=== PATIENT | female | born 1950 | race Caucasian/White ===

== ENCOUNTER 2022-01-02 02:40 | Inpatient (IN) ==
[2022-01-02 04:08] LABS: ABS Basophils 0.1 10^3/ul (0-0.2); ABS Lymphocytes 1.5 10^3/ul (1.0-4.8); ABS Neutrophils 10.6 10^3/ul (1.5-7.7); Eosinophil % 0.3 %; Hematocrit 42 % (35-47); Hemoglobin 14.4 g/dL (12.0-16.0); Lymphocyte % 11.6 %; Mean Corpuscular HGB Conc 34 g/dL (31-36); Mean Corpuscular Hemoglobin 31 pg (27-31); Mean Corpuscular Volume 92 fL (80-97); Platelet Count 228 10^3/uL (150-450); Red Cell Distribution Width 13 % (10-15); White Blood Count 13.2 10^3/uL (3.5-10.8)
[2022-01-02 04:32] LABS: ALT 21 U/L (7-52); AST 25 U/L (13-39); Albumin/Globulin Ratio 1.7 (1-3); Alcohol, S < 13 mg/dL (<13); Alkaline Phosphatase 155 U/L (35-149); Blood Urea Nitrogen 37 mg/dL (6-24); CO2 Carbon Dioxide 26 mmol/L (22-32); Calcium 9.9 mg/dL (8.6-10.3); Chloride 84 mmol/L (101-111); Globulin 2.4 g/dL (2-4); Sodium 123 mmol/L (135-145); Total Protein 6.4 g/dL (6.4-8.9); eGFR CKD-EPI 41.8 (>60)
[2022-01-02 04:33] LABS: Anion Gap 13 mmol/L (2-11); Potassium 5.7 mmol/L (3.5-5.0)
[2022-01-02 05:06] LABS: Glucose 924 mg/dL (70-100)
[2022-01-02] MEDS ORDERED: NS 0.9% 1000 ml BAG 2,000 ML IV ONE (05:07)
[2022-01-02] MEDS ORDERED: Insulin GLARGINE 100 un/ml 10 ml VIAL SUBCUT ONE (05:09)
[2022-01-02 05:26] LABS: Urine Appearance Clear; Urine Color Yellow
[2022-01-02 05:27] LABS: Urine Bilirubin Negative (Negative); Urine Blood Trace (Intact) (Negative); Urine Glucose 3+ (>=1000 mg/dL) (Negative); Urine Ketones Negative (Negative); Urine Protein Negative (Negative); Urine Specific Gravity <=1.005 (1.005-1.030); Urine Urobilinogen 0.2 (Negative) (Negative)
[2022-01-02 05:28] LABS: Urine Nitrite Negative (Negative)
[2022-01-02 06:05] LABS: Urine Bacteria 1+ (Absent); Urine Red Blood Cell Trace(0-2/hpf) (Absent); Urine Squamous Epithelial Cell Present (Absent); Urine White Blood Cell Trace(0-5/hpf) (Absent)
[2022-01-02 07:12] LABS: Glucose Confirmatory 494 mg/dL (70-100)
[2022-01-02 08:14] LABS: Urine Osmo 521 mOsm/kg (150-1150)
[2022-01-02 09:33] LABS: Potassium 4.3 mmol/L (3.5-5.0); eGFR CKD-EPI 52.7 (>60)
[2022-01-02] MEDS ORDERED: Dextrose 50% Syringe 50 ml 25 GM/50 ML SYRINGE IV PUSH PRN ×2 (10:03→10:47)
[2022-01-02] MEDS ORDERED: Lactated Ringers 1000 ml BAG 1,000 ML IV ONE (10:46)
[2022-01-02] MEDS ORDERED: Warfarin per PHARMACY **NOTE FOLLOW UP SCH (11:00)
[2022-01-02] MEDS ORDERED: Lactated Ringers 1000 ml BAG 1,000 ML IV SCH ×2 (11:00)
[2022-01-02 12:12] LABS: INR 1.05 (0.89-1.11)
[2022-01-02 12:21] LABS: Glucose Confirmatory 406 mg/dL (70-100)
[2022-01-02] MEDS: Warfarin DAILY REMINDER **NOTE FOLLOW UP SCH (18:06)
[2022-01-02] MEDS ORDERED: Enoxaparin 40 MG/0.4 ML SYR SUBCUT SCH (19:00)
[2022-01-02] MEDS ORDERED: Insulin GLARGINE 100 un/ml 10 ml VIAL SUBCUT SCH (21:00)
[2022-01-03 06:13] LABS: INR 1.05 (0.89-1.11)
[2022-01-03 06:42] LABS: Calcium 8.8 mg/dL (8.6-10.3); eGFR CKD-EPI 87.5 (>60)
[2022-01-03] MEDS: Warfarin DAILY REMINDER **NOTE FOLLOW UP SCH (17:39)
[2022-01-03] MEDS ORDERED: Insulin GLARGINE 100 un/ml 10 ml VIAL SUBCUT SCH (21:00)
[2022-01-03] MEDS: Enoxaparin 40 MG/0.4 ML SYR SUBCUT SCH (21:44)
[2022-01-04 05:38] LABS: INR 1.11 (0.89-1.11)
[2022-01-04 05:56] LABS: Calcium 8.7 mg/dL (8.6-10.3); eGFR CKD-EPI 82.2 (>60)
[2022-01-04] MEDS: Warfarin DAILY REMINDER **NOTE FOLLOW UP SCH (19:26)
[2022-01-04] MEDS ORDERED: Insulin GLARGINE 100 un/ml 10 ml VIAL SUBCUT SCH (21:00)
[2022-01-04] MEDS: Enoxaparin 40 MG/0.4 ML SYR SUBCUT SCH (21:55)
[2022-01-05 06:27] LABS: INR 1.26 (0.89-1.11)
[2022-01-05 07:13] LABS: Calcium 8.7 mg/dL (8.6-10.3); Potassium 3.7 mmol/L (3.5-5.0); eGFR CKD-EPI 86.1 (>60)
[2022-01-05 15:53] VITALS: BP 130/71
== END 2022-01-05 16:40 | disposition home health service (06) | DRG 638 ==
LOC: ED 02:40 → SUATTDRO 08:26 → EDHOLD 08:26 → MED 15:37
PROVIDERS: ADMIT Internal Medicine; ATTEND Internal Medicine

== ENCOUNTER 2023-04-20 14:25 | Inpatient (IN) ==
[2023-04-20 16:51] LABS: ABS Basophils 0.1 10^3/uL (0.0-0.1); ABS Eosinophils 0.2 10^3/uL (0.0-0.5); ABS Lymphocytes 1.5 10^3/uL (1.0-4.8); ABS Monocytes 0.7 10^3/uL (0.0-0.9); ABS Neutrophils 7.2 10^3/uL (1.5-7.6); Eosinophil % 2.2 %; Hematocrit 36.1 % (35-45); Hemoglobin 12.6 g/dL (11.5-14.3); Lymphocyte % 15.8 %; Mean Corpuscular Hemoglobin 31.8 pg (27-33); Mean Corpuscular Hgb Conc 34.9 g/dL (31-36); Mean Corpuscular Volume 91.1 fL (80-97); Mean Platelet Volume 8.5 fL (7.5-11.2); Platelet Count 208 10^3/uL (150-450); Red Blood Count 3.96 10^6/uL (3.63-4.92); Red Cell Distribution Width 13.7 % (12-17); White Blood Count 9.7 10^3/uL (3.8-11.8)
[2023-04-20 17:00] LABS: INR 1.12 (0.83-1.13)
[2023-04-20 17:11] LABS: Albumin 3.6 g/dL (3.2-5.2); Albumin/Globulin Ratio 1.8 (1-3); C Reactive Protein 3.5 mg/L (<8.01); Calcium 8.8 mg/dL (8.6-10.3); Creatinine, Serum 0.8 mg/dL (0.51-0.95); Potassium 3.4 mmol/L (3.5-5.0); Total Bilirubin 0.9 mg/dL (0.2-1.0); Total Protein 5.6 g/dL (6.4-8.9); eGFR CKD-EPI 78.7 (>60)
[2023-04-20] MEDS ORDERED: Carbidopa/Levodop 25/100 MG TAB PO ONE (17:30)
[2023-04-20] MEDS ORDERED: Dextrose 50% Syringe 50 ml 25 GM/50 ML SYRINGE IV PUSH PRN (18:44)
[2023-04-20] MEDS ORDERED: Potassium Chlor 20 meq TAB.ER PO ONE (18:57)
[2023-04-20 20:31] LABS: Magnesium 1.8 mg/dL (1.9-2.7)
[2023-04-20] MEDS: Carbidopa/Levodop 25/100 MG TAB PO SCH (21:33)
[2023-04-20] MEDS ORDERED: Magnesium Sulfate 2 gm BAG 2 GM/50 ML BAG IVPB ONE (23:54)
[2023-04-21] MEDS: Nystatin TOP POWDER 15 GM BTL TOPICAL SCH ×3 (05:11→19:53)
[2023-04-21 06:13] LABS: ABS Eosinophils 0.4 10^3/uL (0.0-0.5); ABS Lymphocytes 1.8 10^3/uL (1.0-4.8); ABS Monocytes 0.6 10^3/uL (0.0-0.9); ABS Neutrophils 4.2 10^3/uL (1.5-7.6); Eosinophil % 5.7 %; Hematocrit 34.9 % (35-45); Hemoglobin 12.3 g/dL (11.5-14.3); Lymphocyte % 25.8 %; Mean Corpuscular Hemoglobin 32.2 pg (27-33); Mean Corpuscular Hgb Conc 35.4 g/dL (31-36); Mean Corpuscular Volume 91.2 fL (80-97); Mean Platelet Volume 8.7 fL (7.5-11.2); Platelet Count 193 10^3/uL (150-450); Red Blood Count 3.83 10^6/uL (3.63-4.92); Red Cell Distribution Width 14.1 % (12-17); White Blood Count 6.9 10^3/uL (3.8-11.8)
[2023-04-21 06:30] LABS: Calcium 8.5 mg/dL (8.6-10.3); Creatinine, Serum 0.78 mg/dL (0.51-0.95); Potassium 4.1 mmol/L (3.5-5.0); eGFR CKD-EPI 81.2 (>60)
[2023-04-21] MEDS: Carbidopa/Levodop 25/100 MG TAB PO SCH ×3 (08:20→19:49)
[2023-04-21 14:46] LABS: TSH Ultra Thyroid Stim Horm 0.94 mcIU/mL (0.34-5.60)
[2023-04-21 19:59] LABS: Urine Appearance Cloudy; Urine Bilirubin Negative (Negative); Urine Blood Negative (Negative); Urine Color Yellow; Urine Glucose 1+(50 mg/dL) (Negative); Urine Ketones Trace (Negative); Urine Nitrite Negative (Negative); Urine Protein Negative (Negative); Urine Specific Gravity 1.025 (1.002-1.030); Urine Urobilinogen Negative (Negative)
[2023-04-21 20:45] LABS: Urine Bacteria Absent (Absent); Urine Red Blood Cell Absent (Absent); Urine Squamous Epithelial Cell Present (Absent); Urine White Blood Cell 1+(6-10/hpf) (Absent)
[2023-04-22] MEDS: Carbidopa/Levodop 25/100 MG TAB PO SCH ×3 (08:00→20:40)
[2023-04-22] MEDS: Nystatin TOP POWDER 15 GM BTL TOPICAL SCH ×2 (10:11→20:40)
[2023-04-23] MEDS: Nystatin TOP POWDER 15 GM BTL TOPICAL SCH ×2 (10:04→20:57)
[2023-04-23] MEDS: Carbidopa/Levodop 25/100 MG TAB PO SCH ×3 (10:04→20:50)
[2023-04-24] MEDS: Carbidopa/Levodop 25/100 MG TAB PO SCH ×3 (08:44→21:11)
[2023-04-24] MEDS ORDERED: Influenza vaccine *QUAD* *2023-24* 0.5 ML SYRINGE IM ONE (09:00)
[2023-04-24] MEDS: Nystatin TOP POWDER 15 GM BTL TOPICAL SCH ×2 (12:24→21:27)
[2023-04-25] MEDS: Carbidopa/Levodop 25/100 MG TAB PO SCH (08:31)
[2023-04-25] MEDS: Nystatin TOP POWDER 15 GM BTL TOPICAL SCH (08:32)
[2023-04-25 09:44] VITALS: BP 99/66
[2023-04-25 12:41] LABS: Rapid COVID-19 Molecular Undetected (Undetected)
== END 2023-04-25 13:20 | DRG 312 ==
LOC: ED 14:25 → EDHOLD 14:25 → MED 19:46 → SUATTDRO 04-22 09:02
PROVIDERS: ADMIT Hospitalist; ATTEND Internal Medicine

== ENCOUNTER 2023-06-01 11:31 | Observation (INO) ==
[2023-06-01 12:31] LABS: ABS Lymphocytes 1.2 10^3/uL (1.0-4.8); ABS Neutrophils 11.8 10^3/uL (1.5-7.6); ABS Nucleated RBC 0.01 10^3/ul; Eosinophil % 0.1 %; Hematocrit 39.4 % (35-45); Hemoglobin 13.5 g/dL (11.5-14.3); Lymphocyte % 8.4 %; Mean Corpuscular Hemoglobin 31.1 pg (27-33); Mean Corpuscular Hgb Conc 34.2 g/dL (31-36); Mean Corpuscular Volume 91.1 fL (80-97); Mean Platelet Volume 8.5 fL (7.5-11.2); Platelet Count 263 10^3/uL (150-450); Red Blood Count 4.33 10^6/uL (3.63-4.92); Red Cell Distribution Width 14.1 % (12-17)
[2023-06-01 12:47] LABS: ALT 42 U/L (7-52); Albumin 3.5 g/dL (3.2-5.2); Albumin/Globulin Ratio 1.4 (1-3); Alkaline Phosphatase 53 U/L (35-149); Anion Gap 12 mmol/L (2-16); Blood Urea Nitrogen 29 mg/dL (6-24); CO2 Carbon Dioxide 24 mmol/L (22-32); Chloride 103 mmol/L (101-111); Creatinine, Serum 0.77 mg/dL (0.51-0.95); Globulin 2.5 g/dL (2-4); Glucose 193 mg/dL (70-100); Sodium 139 mmol/L (135-145); Total Bilirubin 1.4 mg/dL (0.2-1.0); eGFR CKD-EPI 82.4 (>60)
[2023-06-01 13:14] LABS: Creatine Kinase 2788 U/L (10-223)
[2023-06-01 13:23] LABS: Magnesium 1.7 mg/dL (1.9-2.7); Potassium Redraw 3.8 mmol/L (3.5-5.0)
[2023-06-01] MEDS ORDERED: Lactated Ringers 1000 ml BAG 1,000 ML IV ONE (13:32)
[2023-06-01] MEDS ORDERED: Magnesium Sulfate 2 gm BAG 2 GM/50 ML BAG IVPB ONE (13:32)
[2023-06-01 16:27] LABS: C Reactive Protein 76.7 mg/L (<8.01); Phosphorus 2.8 mg/dL (2.5-5.0)
[2023-06-01 16:52] LABS: TSH Ultra Thyroid Stim Horm 1.26 mcIU/mL (0.34-5.60)
[2023-06-01 17:04] LABS: Folate 8.41 ng/mL (5.90-24.80)
[2023-06-01] MEDS ORDERED: Dextrose 50% Syringe 50 ml 25 GM/50 ML SYRINGE IV PUSH PRN (20:32)
[2023-06-01] MEDS ORDERED: Lactated Ringers 1000 ml BAG 1,000 ML IV SCH (21:00)
[2023-06-01] MEDS: Carbidopa/Levodop 25/100 MG TAB PO SCH (21:21)
[2023-06-02 06:08] LABS: ABS Eosinophils 0.1 10^3/uL (0.0-0.5); ABS Lymphocytes 1.6 10^3/uL (1.0-4.8); ABS Monocytes 0.9 10^3/uL (0.0-0.9); ABS Neutrophils 6.9 10^3/uL (1.5-7.6); ABS Nucleated RBC 0.01 10^3/ul; Eosinophil % 1.4 %; Hematocrit 35.5 % (35-45); Hemoglobin 12.3 g/dL (11.5-14.3); Lymphocyte % 16.5 %; Mean Corpuscular Hemoglobin 31.8 pg (27-33); Mean Corpuscular Hgb Conc 34.6 g/dL (31-36); Mean Corpuscular Volume 91.9 fL (80-97); Mean Platelet Volume 8.8 fL (7.5-11.2); Nucleated Red Blood Cells % 0.1 %/100WBC (0.0-0.8); Platelet Count 227 10^3/uL (150-450); Red Blood Count 3.86 10^6/uL (3.63-4.92); Red Cell Distribution Width 14.1 % (12-17); White Blood Count 9.6 10^3/uL (3.8-11.8)
[2023-06-02 06:31] LABS: Calcium 8.8 mg/dL (8.6-10.3); Creatinine, Serum 0.67 mg/dL (0.51-0.95); Magnesium 1.8 mg/dL (1.9-2.7); Phosphorus 2.3 mg/dL (2.5-5.0); Potassium 3.4 mmol/L (3.5-5.0); eGFR CKD-EPI 93.4 (>60)
[2023-06-02] MEDS ORDERED: Magnesium Sulfate 2 gm BAG 2 GM/50 ML BAG IVPB ONE (07:51)
[2023-06-02] MEDS: Carbidopa/Levodop 25/100 MG TAB PO SCH ×3 (08:56→21:43)
[2023-06-02] MEDS ORDERED: Potassium Chlor 20 meq TAB.ER PO ONE (15:06)
[2023-06-03] MEDS: Insulin GLARGINE 100 un/ml 10 ml VIAL SUBCUT SCH (07:58)
[2023-06-03] MEDS: Carbidopa/Levodop 25/100 MG TAB PO SCH ×3 (09:06→21:27)
[2023-06-04] MEDS: Insulin GLARGINE 100 un/ml 10 ml VIAL SUBCUT SCH (08:41)
[2023-06-04] MEDS: Carbidopa/Levodop 25/100 MG TAB PO SCH ×3 (08:43→20:10)
[2023-06-05] MEDS: Insulin GLARGINE 100 un/ml 10 ml VIAL SUBCUT SCH (08:45)
[2023-06-05] MEDS: Carbidopa/Levodop 25/100 MG TAB PO SCH (08:46)
[2023-06-05 09:57] VITALS: BP 118/59
== END 2023-06-05 13:10 ==
LOC: ED 11:31 → EDHOLD 11:31 → SUATTDRO 14:28 → MED 16:04
PROVIDERS: ADMIT Internal Medicine; ATTEND Internal Medicine

== ENCOUNTER 2023-12-09 20:16 | Inpatient (IN) ==
[2023-12-09] MEDS ORDERED: Vancomycin 1,000 MG in NS 0.9% 250 ml 250 ML IVPB ONE (20:30)
[2023-12-09] MEDS: Lactated Ringers 1000 ml BAG 1,000 ML IV ONE (20:42)
[2023-12-09 20:44] LABS: ABS Basophils 0.1 10^3/uL (0.0-0.1); ABS Lymphocytes 0.2 10^3/uL (1.0-4.8); ABS Monocytes 0.2 10^3/uL (0.0-0.9); ABS Neutrophils 5.3 10^3/uL (1.5-7.6); Eosinophil % 0.1 %; Hematocrit 34.8 % (35-45); Hemoglobin 12.1 g/dL (11.5-14.3); Lymphocyte % 2.7 %; Mean Corpuscular Hemoglobin 32.6 pg (27-33); Mean Corpuscular Hgb Conc 34.6 g/dL (31-36); Mean Corpuscular Volume 94.3 fL (80-97); Mean Platelet Volume 8.6 fL (7.5-11.2); Platelet Count 137 10^3/uL (150-450); Red Cell Distribution Width 14.6 % (12-17); White Blood Count 5.6 10^3/uL (3.8-11.8)
[2023-12-09] MEDS: Piperacillin/Tazobac 3.375 BAG 3.375 GM/100 ML BAG IV ONE (20:45)
[2023-12-09 20:52] LABS: Activated Partial Thrombo Time 29.3 seconds (26.0-38.0); INR 1.35 (0.83-1.13)
[2023-12-09 21:24] LABS: Albumin 3.7 g/dL (3.2-5.2); Albumin/Globulin Ratio 1.9 (1-3); C Reactive Protein 5.98 mg/L (<8.01); Calcium 8.6 mg/dL (8.6-10.3); Creatinine, Serum 0.86 mg/dL (0.51-0.95); Total Bilirubin 0.9 mg/dL (0.2-1.0); Total Protein 5.7 g/dL (6.4-8.9); eGFR CKD-EPI 72.2 (>60)
[2023-12-09] MEDS: Vancomycin 2,000 MG in NS 0.9% 500 ml BAG 500 ML IVPB ONE (21:24)
[2023-12-09] MEDS ORDERED: Iodixanol (CONTRAST) 320 MG/ML 100 ML SDV IV ONE (22:45)
[2023-12-09] MEDS: Lactated Ringers 1000 ml BAG 1,000 ML IV SCH (22:47)
[2023-12-09] MEDS ORDERED: Vancomycin per Pharmacy 1 EA NOTE FOLLOW UP SCH (23:00)
[2023-12-09] MEDS ORDERED: Zosyn per Pharmacy NOTE FOLLOW UP SCH (23:00)
[2023-12-09 23:22] LABS: High Sensitivity Troponin 1 Hr 14 pg/mL (<15)
[2023-12-10] MEDS: ZOSYN 3.375 GM Q8H per EXTENDED INFUSION IV SCH (00:58)
[2023-12-10] MEDS ORDERED: ZOSYN 3.375 GM Q8H per EXTENDED INFUSION IV SCH (01:00)
[2023-12-10] MEDS: Acetaminophen IV 1 GM/100ML 1,000 MG/100 ML BAG IV PRN (02:21)
[2023-12-10 03:09] LABS: Urine Appearance Clear; Urine Bilirubin Negative (Negative); Urine Blood Negative (Negative); Urine Color Yellow; Urine Glucose Negative (Negative); Urine Ketones Trace (Negative); Urine Nitrite Negative (Negative); Urine Protein Trace (Negative); Urine Specific Gravity 1.028 (1.002-1.030); Urine Urobilinogen Negative (Negative); Urine pH 5.5 (5.0-8.0)
[2023-12-10 03:10] LABS: Urine Bacteria Absent /HPF (Absent); Urine Red Blood Cell Trace(0-2/hpf) /HPF (0-Trace); Urine Squamous Epithelial Cell Present /HPF (Absent); Urine White Blood Cell Trace(0-5/hpf) /HPF (0-Trace)
[2023-12-10 06:22] LABS: ABS Lymphocytes 0.2 10^3/uL (1.0-4.8); ABS Monocytes 0.2 10^3/uL (0.0-0.9); ABS Nucleated RBC 0.01 10^3/ul; Hematocrit 37.2 % (35-45); Hemoglobin 12.4 g/dL (11.5-14.3); Lymphocyte % 2.2 %; Mean Corpuscular Hemoglobin 31.4 pg (27-33); Mean Corpuscular Hgb Conc 33.3 g/dL (31-36); Mean Corpuscular Volume 94.3 fL (80-97); Mean Platelet Volume 8.7 fL (7.5-11.2); Nucleated Red Blood Cells % 0.1 %/100WBC (0.0-0.8); Platelet Count 138 10^3/uL (150-450); Red Blood Count 3.95 10^6/uL (3.63-4.92); Red Cell Distribution Width 15.1 % (12-17); White Blood Count 11.5 10^3/uL (3.8-11.8)
[2023-12-10 08:28] LABS: Albumin 3.5 g/dL (3.2-5.2); Albumin/Globulin Ratio 1.7 (1-3); Calcium 8.5 mg/dL (8.6-10.3); Creatinine, Serum 1.12 mg/dL (0.51-0.95); Globulin 2.1 g/dL (2-4); Potassium 4.4 mmol/L (3.5-5.0); Total Bilirubin 1.7 mg/dL (0.2-1.0); Total Protein 5.6 g/dL (6.4-8.9); eGFR CKD-EPI 52.6 (>60)
[2023-12-10] MEDS: Insulin GLARGINE 100 un/ml 10 ml VIAL SUBCUT SCH (08:59)
[2023-12-10] MEDS: Carbidopa/Levodop 25/100 MG TAB PO SCH (09:04)
[2023-12-10] MEDS: Lactated Ringers 1000 ml BAG 1,000 ML IV SCH ×2 (09:09→11:19)
[2023-12-10] MEDS: Vancomycin 1000 MG in NS 0.9% 250 ML IVPB SCH (09:12)
[2023-12-10] MEDS: Lactated Ringers 1000 ml BAG 1,500 ML IV ONE (09:31)
[2023-12-10] MEDS ORDERED: Vancomycin 1,500 MG in NS 0.9% 250 ml 250 ML IVPB SCH (10:45)
[2023-12-10] MEDS ORDERED: Vancomycin per Pharmacy 1 EA NOTE FOLLOW UP PRN (11:10)
[2023-12-10] MEDS: cefTRIAXone 2 gm/50 mL D5W 2 GM/50 ML BAG IV SCH (12:34)
[2023-12-10 13:06] LABS: Anion Gap 12 mmol/L (2-16); Blood Urea Nitrogen 32 mg/dL (6-24); CO2 Carbon Dioxide 19 mmol/L (22-32); Chloride 103 mmol/L (101-111); Creatinine, Serum 1.01 mg/dL (0.51-0.95); Glucose 132 mg/dL (70-100); Sodium 134 mmol/L (135-145); eGFR CKD-EPI 59.5 (>60)
[2023-12-10 13:26] LABS: Calcium 8.4 mg/dL (8.6-10.3)
[2023-12-10] MEDS ORDERED: Vancomycin 1000 MG in NS 0.9% 250 ML IVPB SCH (21:00)
[2023-12-11 06:40] LABS: ABS Lymphocytes 0.6 10^3/uL (1.0-4.8); ABS Monocytes 0.6 10^3/uL (0.0-0.9); ABS Neutrophils 12.7 10^3/uL (1.5-7.6); Hematocrit 33.3 % (35-45); Hemoglobin 11.5 g/dL (11.5-14.3); Lymphocyte % 4.2 %; Mean Corpuscular Hemoglobin 32.3 pg (27-33); Mean Corpuscular Hgb Conc 34.6 g/dL (31-36); Mean Corpuscular Volume 93.5 fL (80-97); Platelet Count 129 10^3/uL (150-450); Red Blood Count 3.56 10^6/uL (3.63-4.92); Red Cell Distribution Width 15.4 % (12-17)
[2023-12-11 07:07] LABS: Calcium 8.2 mg/dL (8.6-10.3); Creatinine, Serum 0.96 mg/dL (0.51-0.95); Magnesium 1.5 mg/dL (1.9-2.7); Potassium 3.9 mmol/L (3.5-5.0); eGFR CKD-EPI 63.3 (>60)
[2023-12-11] MEDS ORDERED: Naloxone 0.4 mg VIAL 0.4 mg/ml 1 ml VIAL ONE (08:11)
[2023-12-11] MEDS ORDERED: Flumazenil 0.5 mg/5 ml 0.1 MG/ML 5 ml VIAL ONE (08:11)
[2023-12-11] MEDS ORDERED: Midazolam 5 mg/5 ml VIAL 1 mg/ml 5 ml VIAL (5 mg) ONE (08:11)
[2023-12-11] MEDS ORDERED: fentaNYL 100 mcg/2 ml 50 MCG/ML VIAL ONE (08:11)
[2023-12-11] MEDS ORDERED: Vancomycin Trough Check NOTE FOLLOW UP ONE (08:30)
[2023-12-11] MEDS: fentaNYL 100 mcg/2 ml 50 MCG/ML VIAL IV SLOW PU ONE (09:13)
[2023-12-11] MEDS: Midazolam 10 mg/10 ml VIAL 1 mg/ml 10 ml VIAL (10 mg) IV SLOW PU ONE (09:14)
[2023-12-11] MEDS: Magnesium Sulf 4 GM/100 ML IV 4,000 MG/100 ML BAG IVPB ONE (10:28)
[2023-12-11] MEDS: Sulfur Hexaflouride MICROSPHR 25 MG VIAL IV ONE (11:12)
[2023-12-11] MEDS: Lactated Ringers 1000 ml BAG 1,000 ML IV SCH (13:14)
[2023-12-11] MEDS: Insulin GLARGINE 100 un/ml 10 ml VIAL SUBCUT SCH (13:29)
[2023-12-11] MEDS: cefTRIAXone 2 gm/50 mL D5W 2 GM/50 ML BAG IV SCH (14:16)
[2023-12-12 08:19] LABS: ABS Eosinophils 0.1 10^3/uL (0.0-0.5); ABS Lymphocytes 0.9 10^3/uL (1.0-4.8); ABS Monocytes 0.6 10^3/uL (0.0-0.9); Eosinophil % 0.8 %; Hematocrit 33.4 % (35-45); Hemoglobin 11.6 g/dL (11.5-14.3); Lymphocyte % 7.9 %; Mean Corpuscular Hemoglobin 32.7 pg (27-33); Mean Corpuscular Hgb Conc 34.7 g/dL (31-36); Mean Corpuscular Volume 94.1 fL (80-97); Mean Platelet Volume 8.8 fL (7.5-11.2); Platelet Count 130 10^3/uL (150-450); Red Blood Count 3.55 10^6/uL (3.63-4.92); White Blood Count 11.6 10^3/uL (3.8-11.8)
[2023-12-12 08:58] LABS: Anion Gap 10 mmol/L (2-16); Blood Urea Nitrogen 25 mg/dL (6-24); CO2 Carbon Dioxide 22 mmol/L (22-32); Calcium 8.2 mg/dL (8.6-10.3); Chloride 101 mmol/L (101-111); Creatinine, Serum 0.79 mg/dL (0.51-0.95); Glucose 123 mg/dL (70-100); Magnesium 1.9 mg/dL (1.9-2.7); Potassium 3.7 mmol/L (3.5-5.0); Sodium 133 mmol/L (135-145); eGFR CKD-EPI 79.9 (>60)
[2023-12-12 09:04] LABS: CRP High Sensitivity > 80.00 mg/L (<2.00)
[2023-12-13 05:56] VITALS: BP 161/74
[2023-12-13 06:32] LABS: ABS Eosinophils 0.1 10^3/uL (0.0-0.5); ABS Lymphocytes 1.2 10^3/uL (1.0-4.8); ABS Monocytes 0.9 10^3/uL (0.0-0.9); ABS Nucleated RBC 0.01 10^3/ul; Eosinophil % 1.1 %; Hematocrit 31.7 % (35-45); Lymphocyte % 10.8 %; Mean Corpuscular Hemoglobin 32.2 pg (27-33); Mean Corpuscular Hgb Conc 34.7 g/dL (31-36); Mean Platelet Volume 9.1 fL (7.5-11.2); Nucleated Red Blood Cells % 0.1 %/100WBC (0.0-0.8); Platelet Count 143 10^3/uL (150-450); Red Blood Count 3.41 10^6/uL (3.63-4.92); Red Cell Distribution Width 14.8 % (12-17); White Blood Count 11.3 10^3/uL (3.8-11.8)
[2023-12-13 06:48] LABS: Creatinine, Serum 0.73 mg/dL (0.51-0.95); Magnesium 1.7 mg/dL (1.9-2.7); Phosphorus 2.3 mg/dL (2.5-5.0); Potassium 3.4 mmol/L (3.5-5.0); eGFR CKD-EPI 87.9 (>60)
[2023-12-13] MEDS: Magnesium Sulfate 2 gm BAG 2 GM/50 ML BAG IVPB ONE (08:47)
[2023-12-13] MEDS: Potassium Chlor 20 meq TAB.ER PO ONE (08:51)
[2023-12-13] MEDS: Amoxicillin/Clavul 875/125 TAB (Augmentin 875 tab) PO SCH (08:52)
[2023-12-13] MEDS ORDERED: Amoxicillin/Clavul 875/125 TAB (Augmentin 875 tab) PO SCH (09:00)
[2023-12-13] MEDS: Potassium & Sodium Phos 250 mg = 1 PACKET PO ONE (10:25)
[2023-12-13] MEDS: NS 0.9% 1000 ml BAG 1,000 ML IV SCH (10:25)
[2023-12-15 00:58] LABS: Anaplasma phagocytophilum Negative (Negative); B. miyamotoi PCR, B Negative (Negative); Babesia divergens/MO-1 Negative (Negative); Babesia ducani Negative (Negative); Ehrlichia chaffeensis Negative (Negative); Ehrlichia ewingii/canis Negative (Negative); Ehrlichia muris eauclairensis Negative (Negative)
== END 2023-12-13 13:20 | DRG 871 ==
LOC: ED 20:16 → EDHOLD 20:16 → SUATTDRO 22:12 → MED 22:52
PROVIDERS: ADMIT Hospitalist; ATTEND Internal Medicine